=== PATIENT | female | born 1990 | race Caucasian/White ===

== ENCOUNTER 2022-01-11 07:27 | Inpatient (IN) | payer MEDICAID, OTHER ==
[~2022-01-11] VITALS: Ht 157.5 cm; Wt 109.3 kg
[2022-01-11] MEDS ORDERED: PREN1TAB22 PO (08:18)
[2022-01-11] MEDS ORDERED: NALOXONE HCL 0.4 MG/ML 1ML VIAL IM PRN (08:30)
[2022-01-11] MEDS ORDERED: METHYLERGONOVINE MALEATE 0.2 MG/ML IM PRN (08:30)
[2022-01-11] MEDS ORDERED: CARBOPROST TROMETHAMINE 250 MCG/ML AMPUL IM PRN (08:30)
[2022-01-11] MEDS ORDERED: OXYTOCIN 10 UNITS/ML 1ML ONE (09:08)
[2022-01-11] MEDS ORDERED: KETOROLAC 60MG/2ML VIAL IM ONE (09:08)
[2022-01-11] MEDS ORDERED: ONDANSETRON HCL 4MG/2ML INJ ONE (09:08)
[2022-01-11] MEDS ORDERED: DEXAMETHASONE 4MG/ML 1ML VIAL ONE (09:08)
[2022-01-11] MEDS ORDERED: CEFAZOLIN SODIUM 1000MG/VIAL ONE (09:08)
[2022-01-11] MEDS ORDERED: MORPHINE SULFATE/PF 1MG/ML 10ML AMP ONE (09:09)
[2022-01-11] MEDS: LACTATED RINGERS 1,000 ML IV SCH ×2 (09:42→09:43)
[2022-01-11 09:46] LABS: CLARITY URINE CLEAR (CLEAR); COLOR URINE YELLOW (YELLOW); KETONES URINE NEGATIVE (NEGATIVE); LEUKOCYTE ESTERASE URINE NEGATIVE (NEGATIVE); NITRITE URINE NEGATIVE (NEGATIVE); OCCULT BLOOD URINE NEGATIVE (NEGATIVE); PROTEIN URINE NEGATIVE (NEGATIVE); SPECIFIC GRAVITY URINE 1.017 (1.005-1.030); UROBILINOGEN URINE 0.2 E.U./dL (0.2-1.0)
[2022-01-11 09:47] LABS: BASOPHILS % 0.3 % (0.0-2.0); EOSINOPHILS % 0.7 % (0.0-5.0); HEMATOCRIT. 32.2 % (36.0-48.0); HEMOGLOBIN. 10.9 g/dL (12.0-16.0); LYMPHOCYTES % 16.7 % (20.0-50.0); MEAN CORPUSCULAR HEMOGLOBIN 26.9 pg (28.0-32.0); MEAN CORPUSCULAR VOLUME 79.2 fL (81.0-99.0); MEAN PLATELET VOLUME 10.1 fl (7.4-10.4); MONOCYTES % 5.9 % (2.0-8.0); NEUTROPHILS % 76.4 % (40.0-76.0); PLATELET 190 x1000/uL (130-400); RED BLOOD CELL COUNT 4.07 mill/uL (4.2-5.4); RED CELL DISTRIBUTION WIDTH 16.8 % (11.6-14.6)
[2022-01-11 09:55] LABS: PARTIAL THROMBOPLASTIN TIME 28.6 sec (23.4-31.0); PROTHROMBIN TIME 10.5 sec (9.6-11.0)
[2022-01-11 11:04] LABS: *AMPHETAMINES SCREEN URINE NEGATIVE (NEGATIVE); *BARBITURATES SCREEN URINE NEGATIVE (NEGATIVE); *BENZODIAZEPINES SCREEN URINE NEGATIVE (NEGATIVE); *COCAINE SCREEN URINE NEGATIVE (NEGATIVE); CANNABINOID URINE SCREEN NEGATIVE (NEGATIVE); METHADONE URINE SCREEN NEGATIVE (NEGATIVE); OPIATES URINE SCREEN NEGATIVE (NEGATIVE); PHENCYCLIDINE URINE SCREEN NEGATIVE (NEGATIVE)
[2022-01-11] MEDS ORDERED: PHENYLEPHRINE HCL 10 MG/ML 1ML (IV VIAL) IV ONE (12:31)
[2022-01-11] MEDS ORDERED: EPHEDRINE SULFATE 50MG/ML VIAL ONE (12:31)
[2022-01-11] MEDS ORDERED: NALOXONE HCL 0.4 MG/ML 1ML VIAL IV PRN (12:45)
[2022-01-11] MEDS ORDERED: MORPHINE SULFATE/PF 1MG/ML 10ML AMP EPI PRN (12:45)
[2022-01-11] MEDS ORDERED: FENTANYL CITRATE/PF 50MCG/ML 2ML VIAL IV ONE (12:45)
[2022-01-11] MEDS: KETOROLAC 30MG/ML VIAL IV PRN ×2 (14:17→20:19)
[2022-01-11] MEDS ORDERED: RHO(D) IMMUNE GLOBULIN 300 MCG/SYR IM PRN (14:30)
[2022-01-11] MEDS ORDERED: BISACODYL 10MG SUPP PR PRN (14:30)
[2022-01-11] MEDS ORDERED: HEMORRHOIDAL SUPP PR PRN (14:30)
[2022-01-11] MEDS ORDERED: ACETAMINOPHEN WITH CODEINE 300/30MG TABLET PO PRN (14:30)
[2022-01-11] MEDS ORDERED: LANOLIN OINT 7GM TUBE TOP PRN (14:30)
[2022-01-11] MEDS ORDERED: DIPHENHYDRAMINE 25MG CAPSULE PO PRN (14:30)
[2022-01-11] MEDS ORDERED: ONDANSETRON HCL 4MG/2ML INJ IV PRN (14:30)
[2022-01-11] MEDS: OXYTOCIN 30 UNITS/500ML NS PMX 500 ML IV SCH ×2 (15:37→20:12)
[2022-01-11 16:00] VITALS: BP 130/60
[2022-01-11 16:13] LABS: HEPATITIS B SURFACE ANTIGEN NEGATIVE
[2022-01-11 20:00] VITALS: BP 130/72
[2022-01-11] MEDS: DOCUSATE SODIUM 100MG CAPSULE PO SCH (20:12)
[2022-01-11] MEDS: SIMETHICONE 80MG TABLET CHEW PO SCH (20:12)
[2022-01-11] MEDS: MAGNESIUM/ALUMINUM HYDROXIDE/SIMETHICONE 30ML UDC PO SCH (20:14)
[2022-01-12] VITALS: BP 120/65
[2022-01-12] MEDS: KETOROLAC 30MG/ML VIAL IV PRN (02:18)
[2022-01-12 04:00] VITALS: BP 102/62
[2022-01-12 06:59] LABS: BASOPHILS % 0.2 % (0.0-2.0); EOSINOPHILS % 0.3 % (0.0-5.0); HEMATOCRIT. 27.3 % (36.0-48.0); HEMOGLOBIN. 9.2 g/dL (12.0-16.0); LYMPHOCYTES % 19.8 % (20.0-50.0); MEAN CORPUSCULAR HEMOGLOBIN 26.6 pg (28.0-32.0); MONOCYTES % 8.2 % (2.0-8.0); NEUTROPHILS % 71.5 % (40.0-76.0); PLATELET 172 x1000/uL (130-400); RED BLOOD CELL COUNT 3.46 mill/uL (4.2-5.4); RED CELL DISTRIBUTION WIDTH 16.9 % (11.6-14.6)
[2022-01-12 08:00] VITALS: BP 90/55
[2022-01-12] MEDS: SIMETHICONE 80MG TABLET CHEW PO SCH ×3 (08:00→20:55)
[2022-01-12] MEDS: PRENATAL VIT/FE FUMARATE/FA TABLET PO SCH (08:55)
[2022-01-12] MEDS: MAGNESIUM/ALUMINUM HYDROXIDE/SIMETHICONE 30ML UDC PO SCH ×4 (08:55→20:54)
[2022-01-12] MEDS: IBUPROFEN 400MG TABLET PO PRN (08:55)
[2022-01-12] MEDS: FERROUS SULFATE 325MG TABLET PO SCH ×2 (08:55→13:01)
[2022-01-12] MEDS: IBUPROFEN 800MG TABLET PO PRN ×2 (14:51→20:55)
[2022-01-12 20:00] VITALS: BP 105/54
[2022-01-12] MEDS: DOCUSATE SODIUM 100MG CAPSULE PO SCH (20:54)
[2022-01-13 04:00] VITALS: BP 114/72
[2022-01-13] MEDS: IBUPROFEN 400MG TABLET PO PRN (05:05)
[2022-01-13 07:20] VITALS: BP 114/54
[2022-01-13] MEDS: MAGNESIUM/ALUMINUM HYDROXIDE/SIMETHICONE 30ML UDC PO SCH (07:49)
[2022-01-13] MEDS: SIMETHICONE 80MG TABLET CHEW PO SCH (07:49)
[2022-01-13] MEDS: FERROUS SULFATE 325MG TABLET PO SCH (07:49)
[2022-01-13] MEDS: PRENATAL VIT/FE FUMARATE/FA TABLET PO SCH (07:49)
== END 2022-01-13 11:15 | disposition home or self-care (01) | DRG 539 ==
LOC: OBSVTOIN 07:27 → 8 EST LDRP 07:27 → 8EST 16:00
PROVIDERS: ADMIT Obstetrics & Gynecology; ATTEND Obstetrics & Gynecology
PROC: 10D00Z1 Extraction of Products of Conception, Low, Open Approach (ICD-10-PCS; principal; 2022-01-11)
PROC: 0UB70ZZ Excision of Bilateral Fallopian Tubes, Open Approach (ICD-10-PCS; 2022-01-11)
PROC: 30233S1 Transfusion of Nonautologous Globulin into Peripheral Vein, Percutaneous Approach (ICD-10-PCS; 2022-01-12)
DX: O34.211 Maternal care for low transverse scar from previous cesarean delivery (principal); O26.893 Other specified pregnancy related conditions, third trimester; Z20.822 Contact with and (suspected) exposure to COVID-19; Z30.2 Encounter for sterilization; Z37.0 Single live birth; Z67.11 Type A blood, Rh negative; Z3A.39 39 weeks gestation of pregnancy
CPT/HCPCS: 36415; 80305; 81003; 82947; 85025; 86592; 86703; 86762; 86850; 86886; 86900; 87340; 87426; 88302; 88307; 90384; J0690; J1100; J1885; J2274; J2370; J2405; J3490; J7120; A4315; J2590; J2791